=== PATIENT | female | born 1950 | race Caucasian/White ===

== ENCOUNTER 2021-10-31 22:50 | Emergency (ER) | payer OTHER ==
[~2021-10-31] VITALS: Ht 152.4 cm; Wt 56.7 kg
[2021-10-31] MEDS ORDERED: BUSPIRONE HCL7.5 MG (23:29)
[2021-10-31] MEDS ORDERED: MIRTAZAPINE30 M1 (23:29)
== END 2021-11-01 03:26 ==
LOC: ER 22:50
DX: R53.1 Weakness (principal); R07.9 Chest pain, unspecified; Z20.822 Contact with and (suspected) exposure to COVID-19; Z88.8 Allergy status to other drugs, medicaments and biological substances